=== PATIENT | female | born 1945 | race Caucasian/White ===

== ENCOUNTER → 2023-01-01 08:16 | Outpatient (BNVA) | payer MEDICARE, SELFPAY | PROVIDERS: Family Provider Family Medicine; PCP Family Medicine; Visit Provider Family Medicine | DX: R00.2 Palpitations (principal); Z79.899 Other long term (current) drug therapy | CPT/HCPCS: 80053; 83735; 83880; 84443; 85025 ==

== ENCOUNTER 2023-01-02 05:00 | Observation (INO) | payer MEDICARE, SELFPAY ==
[2023-01-02] VITALS (80 sets, daily range): BP systolic 120–209; BP diastolic 57–102; PULSE 60–117; RESP 1–30; TEMP 36.4–36.9; O2SAT 92–100; BMI 26.6
--- NOTE | 2023-01-02 05:06 | ED_ITS ---
Documented by User: Gerard Gonzalez MD 01/02/23 05:40 HPI - General Adult General: Chief complaint: Altered Mental Status Stated complaint: AMS Time Seen by Provider: 01/02/23 05:02 Source: patient and EMS Mode of arrival: EMS Limitations: no limitations History of Present Illness: 77-year-old female that per EMS went to bed last night at 8. Primus stated that tried to wake her up at 3 AM is very difficult to arouse and seemed very confused EMS states when they arrived she was difficult to arouse as well and was confused she is now awake she is answering my questions she is able to tell me the president you the year and her name she does appear little lethargic denies any pain anywhere denies any fever. Associated symptoms: Reports confusion; Deny chest pain, dyspnea, headache(s), nausea, rash or vomiting Review of Systems Const: Denies: fever(s) or chills Eyes: Denies: blurry vision ENMT: Denies: throat pain or dental pain Card: Denies: chest pain Resp: Denies: dyspnea GI: Denies: abdominal pain, nausea, vomiting or diarrhea Musc: Denies: neck pain or back pain Skin/Breast: Denies: rash Neuro: Reports: confusion; Denies: headache(s) Physical Exam Const: COMMON NORMALS: patient oriented x3 HENMT: COMMON NORMALS: normocephalic and atraumatic HEAD & SCALP: normocephalic and atraumatic Eye: COMMON NORMALS: Equal, round and reactive pupils present and EOMs intact bilaterally PUPIL: Yes Equal, round and reactive pupils present Neck/C-Spine: COMMON NORMALS: full ROM and supple Chest: COMMONS NORMALS: normal inspection of the chest and normal palpation of entire chest wall Resp: COMMON NORMALS: normal respiratory effort, No retractions, No use of accessory muscles and clear to auscultation bilaterally AUSCULTATION: clear to auscultation bilaterally Cardio: COMMON NORMALS: No murmurs present (Cardio) RATE: tachycardic RHYTHM: abnormal rhythm irregularly irregular GI: COMMON NORMALS: Normal to inspection, nondistended, normoactive bowel sounds present, Soft to palpation, non-tender and no masses PALPATION: Yes Soft to palpation Extremity: COMMON NORMALS: normal to inspection and full ROM Neuro: COMMON NORMALS: patient oriented x3, moves all extremities and no focal motor deficits Psych: COMMON NORMALS: mental status grossly normal, Normal thought process present and cooperative THOUGHT PROCESS: Normal thought process present Skin: COMMON NORMALS: no rashes or lesions noted and no wounds GENERAL SKIN EXAM: no rashes or lesions noted Course Vital Signs: Vital signs: Vital Signs Temperature 97.9 F 01/02/23 05:01 Pulse Rate 68 01/02/23 05:39 Respiratory Rate 19 H 01/02/23 05:39 Blood Pressure 164/78 01/02/23 05:39 Pulse Oximetry 96 01/02/23 05:39 Oxygen Delivery Me thod Room Air 01/02/23 05:39 [facility] - General Adult Medical Records I reviewed the patient's medical records. Lab Data I reviewed the patient's lab results. 01/02/23 05:15 01/02/23 02:44 Radiology Impressions Chest X-Ray 01/02/23 05:07 IMPRESSION: 1. No definite CHF or pneumonia. 2. Other findings discussed above. Head CT 01/02/23 05:07 IMPRESSION: 1. No acute intracranial hemorrhage or mass effect. 2. Changes of microvascular disease. 3. No definite acute infarct by CT, see above. 4. Other findings discussed above. Laboratory Results WBC 4.7 10^3/uL (4.0-10.0) 01/02/23 05:15 RBC 4.67 10^6/uL (4.1-5.3) 01/02/23 05:15 Hgb 14.8 g/dL (11.5-15.3) 01/02/23 05:15 Hct 45.5 % (37.0-47.0) 01/02/23 05:15 MCV 97.4 fl (81-99) 01/02/23 05:15 MCH 31.7 pg (28.0-34.0) 01/02/23 05:15 MCHC 32.5 g/dL (30.0-36.0) 01/02/23 05:15 RDW 13.5 % (12.1-15.1) 01/02/23 05:15 Plt Count 151 10^3/cmm (130-400) 01/02/23 05:15 MPV 11.4 fL (7.4-10.4) H 01/02/23 05:15 Neut % (Auto) 53.4 % 01/02/23 05:15 Lymph % (Auto) 35.0 % 01/02/23 05:15 Meriwether % (Auto) 10.2 % 01/02/23 05:15 Eos % (Auto) 0.4 % 01/02/23 05:15 Baso % (Auto) 0.8 % 01/02/23 05:15 Neut # (Auto) 2.51 10^3/uL (1.8-7.7) 01/02/23 05:15 Lymph # (Auto) 1.7 10^3/uL (0.8-4.8) 01/02/23 05:15 [place]ether # (Auto) 0.5 10^3/uL (0.2-0.9) 01/02/23 05:15 Eos # (Auto) 0.0 10^3/uL (0.0-0.8) 01/02/23 05:15 Baso # (Auto) 0.0 10^3/uL (0.0-0.1) 01/02/23 05:15 Nucleated RBC % (auto) 0 % 01/02/23 05:15 Nucleated RBCs # 0.0 /100WBC 01/02/23 05:15 PT 12.30 SECONDS (12.1-14.9) 01/02/23 02:44 INR 0.88 (0.8-1.2) 01/02/23 02:44 Sodium 142 mmol/L (136-145) 01/02/23 02:44 Potassium 3.8 mmol/L (3.5-5.1) 01/02/23 02:44 Chloride 106 mmol/L (98-107) 01/02/23 02:44 Carbon Dioxide 26 mmol/L (22-29) 01/02/23 02:44 Anion Gap 13.8 (5-19) 01/02/23 02:44 BUN 16 mg/dL (8-23) 01/02/23 02:44 Creatinine 0.8 mg/dL (0.5-0.9) 01/02/23 02:44 GFR Calculation Not Reportable 01/02/23 02:44 Glucose 95 mg/dL (65-115) 01/02/23 02:44 POC Glucose 103 mg/dL (70-110) 01/02/23 05:29 Calculated Osmolality 295 mOsm/kg (285-295) 01/02/23 02:44 Calcium 9.4 mg/dL (8.5-10.5) 01/02/23 02:44 Total Bilirubin 0.5 mg/dL (0.15-1.2) 01/02/23 02:44 AST 31 U/L (0-32) 01/02/23 02:44 ALT 33 U/L (0-33) 01/02/23 02:44 Alkaline Phosphatase 53 U/L (35-105) 01/02/23 02:44 Ammonia 16 umol/L (11-51) 01/02/23 05:47 Troponin T Baseline 11 ng/L (0-10) H 01/02/23 02:44 Total Protein 7.0 g/dL (6.6-8.7) 01/02/23 02:44 Albumin 4.5 g/dL (3.5-5.2) 01/02/23 02:44 Globulin 2.5 g/dL (1.3-4.6) 01/02/23 02:44 EKG Data EKG 1: I personally reviewed and interpreted this EKG as follows: EKG interpretation date: 01/02/23 EKG interpretation time: 05:28 Interpretation: nsr hr [address] ort wave abnormalities qrs 95 qtc 402 Computer generated interpretation: Chest X-Ray 01/02/23 05:07 IMPRESSION: 1. No definite CHF or pneumonia. 2. Other findings discussed above. Head CT 01/02/23 05:07 IMPRESSION: 1. No acute intracranial hemorrhage or mass effect. 2. Changes of microvascular disease. 3. No definite acute infarct by CT, see above. 4. Other findings discussed above. Discharge Plan Discharge Patient Disposition: Placed in Observation Clinical Impression: Atrial fibrillation, TIA (transient ischemic attack), Hypertension Sign Out Sign Out Data: Patient Sign Out occurred on 01/02/23 at 05:51. Patient's care was discussed, and care was transferred from to Fito Haines DO. Coding Level of Care Code ED Lumber Hacker for Chg Fwd Documented by User: Fito Haines DO 01/02/23 07:19 HPI - General Adult General: Chief complaint: Altered Mental Status Stated complaint: AMS Time Seen by Provider: 01/02/23 05:02 Course Vital Signs: Vital signs: Vital Signs Temperature 97.9 F 01/02/23 05:01 Pulse Rate 68 01/02/23 05:39 Respiratory Rate 19 H 01/02/23 05:39 Blood Pressure 164/78 01/02/23 05:39 Pulse Oximetry 96 01/02/23 05:39 Oxygen Delivery Me thod Room Air 01/02/23 05:39 MDM - General Adult Medical Decision Making Care assumed at change of shift. Reviewing her history of concerning on the monitor for some potential intermittent atrial fibrillation. She had similar symptoms in the past with complaints of palpitations when she was in [place]. They did monitor for a time. She has never been formally diagnosed with atrial fibrillation. She was extremely hypertensive when she arrived here and given labetalol. She has a sinus arrhythmia with frequent pauses and some episodes l ook like she may have short runs of atrial fibrillation. Blood pressures improved after the labetalol. She had seen Dr. Carty yesterday with a complaint of not feeling well head feeling fuzzy elevated heart rate. Dr. Carty's note makes mention of irregular heart rate as well. Will place patient on observation for potential new onset atrial fibrillation as well as TIA and hypertension. Further evaluation for stroke risk medication adjustments for rate and blood pressure control as needed. She is not on any platelet therapy but she is on Crestor 10 mg daily. Lab Data 01/02/23 05:15 01/02/23 02:44 Radiology Impressions Chest X-Ray 01/02/23 05:07 IMPRESSION: 1. No definite CHF or pneumonia. 2. Other findings discussed above. Head CT 01/02/23 05:07 IMPRESSION: 1. No acute intracranial hemorrhage or mass effect. 2. Changes of microvascular disease. 3. No definite acute infarct by CT, see above. 4. Other findings discussed above. Laboratory Results WBC 4.7 10^3/uL (4.0-10.0) 01/02/23 05:15 RBC 4.67 10^6/uL (4.1-5.3) 01/02/23 05:15 Hgb 14.8 g/dL (11.5-15.3) 01/02/23 05:15 Hct 45.5 % (37.0-47.0) 01/02/23 05:15 MCV 97.4 fl (81-99) 01/02/23 05:15 MCH 31.7 pg (28.0-34.0) 01/02/23 05:15 MCHC 32.5 g/dL (30.0-36.0) 01/02/23 05:15 RDW 13.5 % (12.1-15.1) 01/02/23 05:15 Plt Count 151 10^3/cmm (130-400) 01/02/23 05:15 MPV 11.4 fL (7.4-10.4) H 01/02/23 05:15 Neut % (Auto) 53.4 % 01/02/23 05:15 Lymph % (Auto) 35.0 % 01/02/23 05:15 Meriwether % (Auto) 10.2 % 01/02/23 05:15 Eos % (Auto) 0.4 % 01/02/23 05:15 Baso % (Auto) 0.8 % 01/02/23 05:15 Neut # (Auto) 2.51 10^3/uL (1.8-7.7) 01/02/23 05:15 Lymph # (Auto) 1.7 10^3/uL (0.8-4.8) 01/02/23 05:15 Meriwether # (Auto) 0.5 10^3/uL (0.2-0.9) 01/02/23 05:15 Eos # (Auto) 0.0 10^3/uL (0.0-0.8) 01/02/23 05:15 Baso # (Auto) 0.0 10^3/uL (0.0-0.1) 01/02/23 05:15 Nucleated RBC % (auto) 0 % 01/02/23 05:15 Nucleated RBCs # 0.0 /100WBC 01/02/23 05:15 PT 12.30 SECONDS (12.1-14.9) 01/02/23 02:44 INR 0.88 (0.8-1.2) 01/02/23 02:44 Sodium 142 mmol/L (136-145) 01/02/23 02:44 Potassium 3.8 mmol/L (3.5-5.1) 01/02/23 02:44 Chloride 106 mmol/L (98-107) 01/02/23 02:44 Carbon Dioxide 26 mmol/L (22-29) 01/02/23 02:44 Anion Gap 13.8 (5-19) 01/02/23 02:44 BUN 16 mg/dL (8-23) 01/02/23 02:44 Creatinine 0.8 mg/dL (0.5-0.9) 01/02/23 02:44 GFR Calculation Not Reportable 01/02/23 02:44 Glucose 95 mg/dL (65-115) 01/02/23 02:44 POC Glucose 103 mg/dL (70-110) 01/02/23 05:29 Calculated Osmolality 295 mOsm/kg (285-295) 01/02/23 02:44 Calcium 9.4 mg/dL (8.5-10.5) 01/02/23 02:44 Total Bilirubin 0.5 mg/dL (0.15-1.2) 01/02/23 02:44 AST 31 U/L (0-32) 01/02/23 02:44 ALT 33 U/L (0-33) 01/02/23 02:44 Alkaline Phosphatase 53 U/L (35-105) 01/02/23 02:44 Ammonia 16 umol/L (11-51) 01/02/23 05:47 Troponin T Baseline 11 ng/L (0-10) H 01/02/23 02:44 Total Protein 7.0 g/dL (6.6-8.7) 01/02/23 02:44 Albumin 4.5 g/dL (3.5-5.2) 01/02/23 02:44 Globulin 2.5 g/dL (1.3-4.6) 01/02/23 02:44 EKG Data EKG 1: Computer generated interpretation: Chest X-Ray 01/02/23 05:07 IMPRESSION: 1. No definite CHF or pneumonia. 2. Other findings discussed above. Head CT 01/02/23 05:07 IMPRESSION: 1. No acute intracranial hemorrhage or mass effect. 2. Changes of microvascular disease. 3. No definite acute infarct by CT, see above. 4. Other findings discussed above. Discharge Plan Discharge Patient Disposition: Placed in Observation Clinical Impression: Atrial fibrillation, TIA (transient ischemic attack), Hypertension Sign Out Sign Out Data: Patient Sign Out occurred on 01/02/23 at 05:51. Patient's care was discussed, and care was transferred from to Fito Haines DO. Coding Level of Care Code ED Lumber Hacker for Loyd Collado
--- NOTE | 2023-01-02 05:07 | XRR_ITS ---
PROCEDURE INFORMATION: Exam: XR Chest Exam date and time: 01/02/2023 5:14 AM Age: 77 years old Clinical indication: Prior surgery; Surgery date: 6+ months; Surgery type: Breast biopsy; Patient HX: AMS. History of afib. TECHNIQUE: Imaging protocol: Radiologic exam of the chest. Views: 1 view. COMPARISON: No relevant prior studies available. FINDINGS: Lungs: No CHF/pulmonary edema. Poor inspiration somewhat limits evaluation, especially of the lung bases. Visible lungs appear essentially clear. Pleural spaces: No visible pneumothorax. No definite pleural fluid. Heart/Mediastinum: Heart size is within normal limits. Bones/joints: No significant acute finding. XR/XR chest 1V portable [id number] IMPRESSION: 1. No definite CHF or pneumonia. 2. Other findings discussed above.
--- NOTE | 2023-01-02 05:07 | CTR_ITS ---
PROCEDURE INFORMATION: Exam: CT Head Without Contrast Exam date and time: 01/02/2023 5:20 AM Age: 77 years old Clinical indication: Altered mental status/memory loss; Patient HX: AMS. Lethargy. Hypertensive on monitor. TECHNIQUE: Imaging protocol: Computed tomography of the head without contrast. Radiation optimization: All CT scans at this facility use at least one of these dose optimization techniques: automated exposure control; mA and/or kV adjustment per patient size (includes targeted exams where dose is matched to clinical indication); or iterative reconstruction. REPORTING DATA: Count of CT and Cardiac NM exams in prior 12 months: This patient has received 0 known CTs and 0 known cardiac nuclear medicine studies in the 12 months prior to the current study. COMPARISON: No relevant prior studies available. RADIATION DOSE METRICS: Total DLP (mGy-cm): 1051.28 FINDINGS: Brain: No acute intracranial hemorrhage or mass effect. There is mild decreased attenuation in the periventricular white matter, likely from microvascular disease. No definite acute infarct by CT. MRI could be more sensitive/specific for detection, as clinically directed. Cerebral ventricles: Ventricle size is normal for age. Paranasal sinuses: Moderate opacity/fluid in the right aspect of the sphenoid sinus. Included paranasal sinuses otherwise appear essentially clear. Mastoid air cells: No significant acute finding. Bones/joints: No definite acute skull fracture. Soft tissues: No significant acute finding. CT/CT head wo con* [id number] IMPRESSION: 1. No acute intracranial hemorrhage or mass effect. 2. Changes of microvascular disease. 3. No definite acute infarct by CT, see above. 4. Other findings discussed above.
--- NOTE | 2023-01-02 05:28 | ECG_ITS ---
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 Measurements Intervals [place] Rate: 66 P: 23 VT: 161 QRS: -5 QRSD: 95 T: 47 QT: 389 QTc: 408 Interpretive Statements SINUS RHYTHM MINIMAL VOLTAGE CRITERIA FOR LVH, CONSIDER NORMAL VARIANT [MEETS CRITERIA IN ONE OF: R(aVL), S(V1), R(V5), R(V5/V6)+S(V1)] Compared to ECG 09/03/2015 11:51:25 No significant changes Electronically Signed On 01-02-2023 10:28:10 CDT by Niels Reeves M.D. [id number]
[2023-01-02] MEDS: labetalol 5 mg/mL SDV 20mL 10 MG IVP (05:30)
[2023-01-02 05:37] LABS: Basophils % 0.8 %; Eosinophils % 0.4 %; Hematocrit 45.5 % (37.0-47.0); Hemoglobin 14.8 g/dL (11.5-15.3); Lymphocytes # 1.7 10^3/uL (0.8-4.8); Mean Corpuscular HGB Conc 32.5 g/dL (30.0-36.0); Mean Corpuscular Hemoglobin 31.7 pg (28.0-34.0); Mean Corpuscular Volume 97.4 fl (81-99); Mean Platelet Volume 11.4 fL (7.4-10.4); Monocytes # 0.5 10^3/uL (0.2-0.9); Monocytes % 10.2 %; Neutrophils # 2.51 10^3/uL (1.8-7.7); Neutrophils % 53.4 %; Nucleated Red Blood Cells % 0 %; Platelet Count 151 10^3/cmm (130-400); Red Blood Count 4.67 10^6/uL (4.1-5.3); Red Cell Distribution Width 13.5 % (12.1-15.1); White Blood Count 4.7 10^3/uL (4.0-10.0)
[2023-01-02 05:39] LABS: Glucose Point of Care 103 mg/dL (70-110)
[2023-01-02 05:50] LABS: INR 0.88 (0.8-1.2)
[2023-01-02 05:55] LABS: Alanine Aminotransferase 33 U/L (0-33); Albumin Level 4.5 g/dL (3.5-5.2); Alkaline Phosphatase 53 U/L (35-105); Anion Gap 13.8 (5-19); Aspartate Amino Transferase 31 U/L (0-32); Blood Urea Nitrogen 16 mg/dL (8-23); Calcium 9.4 mg/dL (8.5-10.5); Carbon Dioxide 26 mmol/L (22-29); Chloride 106 mmol/L (98-107); Globulin 2.5 g/dL (1.3-4.6); Glucose 95 mg/dL (65-115); Osmolality Calculated 295 mOsm/kg (285-295); Potassium 3.8 mmol/L (3.5-5.1); Sodium 142 mmol/L (136-145); Total Bilirubin 0.5 mg/dL (0.15-1.2)
[2023-01-02 05:59] LABS: Troponin(5th) Baseline 11 ng/L (0-10)
[2023-01-02 06:00] LABS: Slide Review Slide Review Perform
[2023-01-02 06:09] LABS: Ammonia 16 umol/L (11-51)
[2023-01-02 07:11] LABS: Add Urine Microscopic? NO; Charge for UA Resulting for Rev
--- NOTE | 2023-01-02 07:14 | ECG_ITS ---
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 Measurements Intervals [place] Rate: 69 P: 11 UT: 157 QRS: -15 QRSD: 89 T: 32 QT: 423 QTc: 453 Interpretive Statements SINUS RHYTHM WITH SINUS ARRHYTHMIA MINIMAL VOLTAGE CRITERIA FOR LVH, CONSIDER NORMAL VARIANT [MEETS CRITERIA IN ONE OF: R(aVL), S(V1), R(V5), R(V5/V6)+S(V1)] Compared to ECG 01/02/2023 05:28:33 No significant changes Electronically Signed On 01-02-2023 10:28:59 CDT by Niels Reeves M.D. [id number]
[2023-01-02 07:24] LABS: Urine Appearance Clear (CLEAR); Urine Color Straw (Yellow)
[2023-01-02 07:25] LABS: Bilirubin Urine Neg (Negative); Blood Urine Neg (Negative); Glucose Urine UA Norm (Normal); Ketones Urine Negative (Negative); Leukocyte Esterase Urine Negative (Negative); Nitrate Urine Negative (Negative); Protein Urine Neg (Negative); Specific Gravity, Urine 1.005 (1.005-1.030); Sulfosalicylic Acid Urine Negative (Negative); Urobilinogen Urine Norm (Negative); pH Urine 8 (5-7)
[2023-01-02 07:32] LABS: Troponin 5 2HR 9.93 ng/L (0-10)
--- NOTE | 2023-01-02 07:33 | P.HP_ITS ---
Providers/Chief Complaint Primary Care Provider: Gerardo Ramirez MD Chief Complaint: AMS History of Present Illness Maddie Bolden is a 77 year old female with a past medical history significant for GERD, hyperlipidemia, and hypertension who presents to the emergency department complaining of palpitations and lethargy. Spouse and daughter are bedside and aid in providing history. Spouse reports patient went to bed around 8 PM last night which was also her last known well. She woke up in middle of the night and requested help from spouse to go to the restroom. Spouse noted she was much more confused, lethargic and weak than normal. Per ED provider, patient was noted to be lethargic and confused by their evaluation as well. Patient is now awake and alert. She endorse episodic palpitations. She was actually evaluated by her PCP yesterday for similar complaints. Patient's spouse also reports that patient has been having intermittent episodes of weakness and intermittent lower extremity swelling. Patient reports she has been worked up for atrial fibrillation previously after being told she may have an irregular heart beat. She reports she wore a Holter Monitior in [place] previously which did not reveal atrial fibrillation at that time which she thinks was 1-2 years ago. There was concerns of possible ir regular heart beat on monitor per ED provider. She reports her mother had atrial fibrillation. Patient denies fevers, chills, nausea, chest pain, or other new complaints. Review of Systems Narrative: A complete review of systems was obtained and negative except for those noted in the HPI. Medications/Allergies Home Medications Medication Instructions Recorded Confirmed Last Taken Type celecoxib 100 mg capsule (Celebrex) 100 mg PO QAM 01/01/23 01/02/23 Unknown History omeprazole 20 mg capsule,delayed 20 mg PO QAM 01/01/23 01/02/23 Unknown History release rosuvastatin 10 mg tablet 10 mg PO BEDTIME 01/01/23 01/02/23 Unknown History temazepam 30 mg capsule 30 mg PO BEDTIME 01/01/23 01/02/23 Unknown History ascorbic acid (vitamin C) 500 mg 500 mg PO QAM 01/02/23 01/02/23 Unknown History tablet (Vitamin C) aspirin 81 mg tablet,delayed 81 mg PO BEDTIME 01/02/23 01/02/23 Unknown History release biotin 10,000 mcg capsule 10,000 mcg PO QAM 01/02/23 01/02/23 Unknown History calcium carbonate 600 mg calcium 600 mg PO BID 01/02/23 01/02/23 Unknown History (1,500 mg) tablet (Calcium) desvenlafaxine succinate 100 mg 100 mg PO QAM 01/02/23 01/02/23 Unknown History tablet,extended release 24 hr (Pristiq) glucosamine-chondroitin 250 mg-200 1 tab PO BID 01/02/23 01/02/23 Unknown History mg tablet (Osteo Bi-Flex) magnesium oxide 400 mg PO QAM 01/02/23 01/02/23 Unknown History multivitamin 1 tab PO QAM 01/02/23 01/02/23 Unknown History jdrqx-6k-sie-epa-fish oil 120 2 cap PO BID 01/02/23 01/02/23 Unknown History mg-180 mg-60 mg-1,200 mg capsule, DR (Fish Oil) Allergies Allergy/AdvReac Type Severity Reaction Status Date / Time codeine Allergy Intermediate nausea Verified 01/02/23 07:53 PFSH Acute PFSH: Medical History GERD (gastroesophageal reflux disease) Hyperlipidemia Surgical History History of knee surgery Family History Mother Atrial fibrillation Dementia Social History Smoking and tobacco status: never smoked Alcohol intake: never Substance/Drug Use: never Vitals/I&O/Wt Last Vital Signs Temp 97.9 F 01/02/23 05:01 Pulse 68 01/02/23 05:39 Resp 19 H 01/02/23 05:39 BP 164/78 01/02/23 05:39 Pulse Ox 96 01/02/23 05:39 O2 Del Method Room Air 01/02/23 05:39 Weight last 48 hrs Weight 77.111 kg Physical Exam Narrative: General: Patient is awake. Appears fatigued. Head: Normocephalic. Atraumatic. EOM intact. Neck: No JVD. Cardiovascular: RRR. No gallops. No murmurs. Lungs: Clear to auscultation, no use of accessory muscles, no crackles or wheezes. Hypertensive. Skin: No jaundice. No rashes. Abdomen: Soft. Not distended. Normal bowel sounds. Extremities: No cyanosis or clubbing. Musculoskeletal: Normal muscular development. Neurological: No myoclonus. Moves all 4 extremities. Data 01/02/23 05:15 01/02/23 02:44 A&P Assessment and plan (1) Palpitations: History of recurrent palpitations and chest tightness Previous Holter monitor unremarkable per patient Tele reviewed, currently in sinus rhythm Telemetry monitoring Strict I&Os, daily weights Monitor electrolytes Check TSH Check echocardiogram Cardiology consultation (2) Altered mental status: Appears to have resolved, appropriate on exam Head CT reviewed, negative for acute findings Neurochecks (3) GERD (gastroesophageal reflux disease): PPI (4) Hyperlipidemia: Statin ASA Plan DVT ppx: Lovenox Code status: Full Code Attestations Medical Necessity Statement*: Patient presents with altered mental status and recurrent palpitations concerning for paroxysmal atrial fibrillation with expected hospitalization not to cross two midnights. Coding Level of Care Code Acute Code for Chg Fwd Diagnoses Palpitations R00.2 Altered mental status R41.82 GERD (gastroesophageal reflux disease) K21.9 Hyperlipidemia E78.5
[2023-01-02 07:44] LABS: Troponin 5 2HR Delta -1.07 ABS# (0-10)
[2023-01-02] MEDS: acetaminophen 325 mg Tablet 650 MG PO (09:18)
--- NOTE | 2023-01-02 10:21 | PC.CHAP ---
Pastoral Care Encounter/Spiritual Assessment Type of Contact [] Declined performance improvement coordinator visit [] Patient/Family/Request visit [] Outpatient visit [] Follow-up visit [] Physician referral [] Code/Alert [x] Routine visit [] Staff referral [] Actively dying [] Patient sleeping [] Family support [] [] Out of room [] Palliative care [] [] Receiving care in room [] Pre-surgical visit [] Trauma [] Long length of stay [] ICU visit [] Other: Relational/Emotional Strength [] Patient feels connected with others/family/visitors/staff [] Distress [] Loneliness/isolation [] Abandonment Spirituality of Patient [] Person of Lyric [] Attends Yazidism of their Lyric [] Believes in Prayer [] Reads Bible or Mormonism materials [] There are Spiritual issues to be addressed Internal Wholesaler Interventions [x] Prayer [] Active listening [] Non-anxious presence [] Spiritual/emotional support [] Crisis/trauma care [] Spiritual counseling [] Bereavement support [] Provided bereavement packet [] Provided Bible/devotional materials [] Provided toy/stuffed animal, coloring book to patient or family member [] Provided Communion [] Anointing/[place] [] Salvation [] Completed spiritual assessment [] Other: Impact on Illness or Injury [] Angry [] Fearful [] Anxious [] Often cries [] Exhaustion [] Unable to work [] Unable to attend mosque [] Unable to walk/stand [] Unable to read [] Unable to drive [] Unable to eat/drink [] Unable to sleep [] Unable to be with family [] Patient intubated [] Other: Summary patient just got in room Time spent with patient 5 min
--- NOTE | 2023-01-02 10:24 | USCV_ITS ---
Maddie Bolden Age: 77 Gender: F : 1945 Exam Date: 01/02/2023 10:58 Ordering Phys: Emeka Parekh MD Technologist: KIANA Exam Location: [place] Indication: afib BP: / HR: 70 Rhythm: Sinus Technical Quality: Adequate MEASUREMENTS (Male / Female) Normal Values 2D ECHO LV Diastolic Diameter PLAX 4.5 cm 4.2 - 5.9 / 3.9 - 5.3 cm LV Systolic Diameter PLAX 2.6 cm IVS Diastolic Thickness 0.9 cm 0.6 - 1.0 / 0.6 - 0.9 cm IVS Systolic Thickness 1.3 cm LVPW Diastolic Thickness 0.6 cm 0.6 - 1.0 / 0.6 - 0.9 cm LVPW Systolic Thickness 1.3 cm LVOT Diameter 2.1 cm LV Ejection Fraction 2D Teich 73.1 % LV Ejection Fraction MOD 2C 58.1 % LV Ejection Fraction 2C AL 60.7 % LA Diameter 3.1 cm IVC Diameter 1.1 cm M-MODE Aortic Annulus Diameter 3.0 cm LA Ao Ratio MM 1.1 MV E Point Septal Separation 0.4 cm DOPPLER AV Peak Velocity 116.0 cm/s LVOT Peak Velocity 84.0 cm/s AV Area Cont Eq vti 2.4 cm squared AV Area Cont Eq pk 2.4 cm squared MV Area PHT 3.1 cm squared Mitral E to A Ratio 0.6 MV E' Velocity 29.5 cm/s Mitral E to MV E' Ratio 10.9 Mitral E to LV E' Lateral Ratio 10.3 Mitral E to LV E' Septal Ratio 11.7 TR Peak Velocity 198.5 cm/s TR Peak Gradient 15.8 mmHg TR Mean Velocity 201.0 cm/s TR Mean Gradient 16.2 mmHg TR Velocity Time Integral 0.0 cm TV Peak E Velocity 42.0 cm/s Right Atrial Pressure 3.0 mmHg Pulmonary Artery Systolic Pressu 18.8 mmHg PV Peak Velocity 64.0 cm/s FINDINGS Left Ventricle Normal left ventricular size, systolic function and wall thickness, with no regional wall motion abnormalities. Left ventricular ejection fraction is estimated at 65 %. Grade I diastolic dysfunction (abnormal relaxation filling pattern), normal to mildly elevated filling pressures. Right Ventricle Normal right ventricular size and systolic function. RVSP could not be calculated due to incomplete tricuspid regurgitation velocity profile. Right Atrium Normal right atrial size. Left Atrium Mildly increased left atrial size. Mitral Valve Structurally normal mitral valve. No mitral valve stenosis. Trace mitral valve regurgitation. Aortic Valve Structurally normal trileaflet aortic valve. No aortic valve stenosis. No aortic valve regurgitation. Tricuspid Valve Structurally normal tricuspid valve. No tricuspid valve stenosis. Trace tricuspid valve regurgitation. Pulmonic Valve Structurally normal pulmonic valve. No pulmonary valve stenosis. Pericardium No pericardial effusion. Aorta Normal size aortic root and proximal ascending aorta. IVC Normal IVC dimension with >50% respiratory change of the inferior vena cava. CONCLUSIONS 1. Normal left ventricular size, systolic function and wall thickness, with no regional wall motion abnormalities. Left ventricular ejection fraction is estimated at 65 %. Grade I diastolic dysfunction (abnormal relaxation filling pattern), normal to mildly elevated filling pressures. 2. No significant valvular abnormality. 3. No prior similar studies to compare. Aide Romero MD (Electronically Signed) Final Date: 02 January 2023 14:55 S
--- NOTE | 2023-01-02 11:07 | ECG_ITS ---
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 Measurements Intervals [place] Rate: 75 P: 26 SC: 148 QRS: -10 QRSD: 86 T: 54 QT: 403 QTc: 453 Interpretive Statements SINUS RHYTHM WITH SINUS ARRHYTHMIA Compared to ECG 01/02/2023 07:14:23 No significant changes Electronically Signed On 01-02-2023 17:04:31 CDT by Niels Reeves M.D. [id number]
[2023-01-02 11:20] LABS: Thyroid Stimulating Hormone 2.26 uIU/mL (0.27-4.20)
--- NOTE | 2023-01-02 12:06 | P.CONIM_ITS ---
Providers/Reason For Consult Consulting Physician/Specialty*: Dr. Romero, Cardiology Reason for Consult*: Tachycardia concern for atrial fibrillation, for loop recorder implantation Attending Physician: Emeka Parekh MD Primary Care Provider: Gerardo Ramirez MD History of Present Illness History of Present Illness Maddie Bolden is a 77 year old female with?past medical history significant for hypertension, HLD and GERD presented to the emergency room with lethargy, slurred speech and fatigue.? As per , patient went to bed around 8 PM last night and she woke up in middle of the night and was noted to have staggering gait.? She was noted to have more confused and lethargic. He called her daughter and patient was brought to the ER. She went to her PCP yesterday for palpitations described as skipped beats followed later by fatigue. She wore a Holter Monitor in [place] that did not reveal atrial fibrillation about 1-2 years ago.? There was some concern of possible irregular heart beat on monitor per ED provider.? She reports her mother had atrial fibrillation. She has been under a lot of stress and got back after visiting her son on Thursday who has been sick. She also tells me that she does not drink much fluid. One glass of water in morning and decaf tea in evening. Review of Systems Const: Reports: fatigue and malaise; Denies: fever(s), chills, change in appetite or change in weight Eyes: Denies: change in vision ENMT: Denies: throat pain, swelling of lips/tongue, oral sores, bleeding gums, nasal congestion or epistaxis Card: Reports: edema (minimal); Denies: chest pain Resp: Denies: dyspnea or chest congestion GI: Denies: abdominal pain, nausea, vomiting, hematemesis, heartburn, diarrhea, constipation, change in bowel habits, hematochezia or melena : Denies: difficulty voiding, dysuria, oliguria or hematuria Musc: Denies: back pain, extremity swelling, joint pain or muscle weakness Skin/Breast: Denies: rash or erythema Neuro: Reports: headache(s) (Upon waking) Psych: Denies: anxiety, depression or irritability Endo: Denies: tired all the time Jeffrey/Lymph: Denies: easy bruising, easy bleeding, petechiae or purpura All/Imm: Denies: throat swelling, tongue swelling or acute wheezing Medications/Allergies Home Medications Medication Instructions Recorded Confirmed Last Taken Type celecoxib 100 mg capsule (Celebrex) 100 mg PO QAM 01/01/23 01/02/23 Unknown History omeprazole 20 mg capsule,delayed 20 mg PO QAM 01/01/23 01/02/23 Unknown History release rosuvastatin 10 mg tablet 10 mg PO BEDTIME 01/01/23 01/02/23 Unknown History temazepam 30 mg capsule 30 mg PO BEDTIME 01/01/23 01/02/23 Unknown History ascorbic acid (vitamin C) 500 mg 500 mg PO QAM 01/02/23 01/02/23 Unknown History tablet (Vitamin C) aspirin 81 mg tablet,delayed 81 mg PO BEDTIME 01/02/23 01/02/23 Unknown History release biotin 10,000 mcg capsule 10,000 mcg PO QAM 01/02/23 01/02/23 Unknown History calcium carbonate 600 mg calcium 600 mg PO BID 01/02/23 01/02/23 Unknown History (1,500 mg) tablet (Calcium) desvenlafaxine succinate 100 mg 100 mg PO QAM 01/02/23 01/02/23 Unknown History tablet,extended release 24 hr (Pristiq) glucosamine-chondroitin 250 mg-200 1 tab PO BID 01/02/23 01/02/23 Unknown History mg tablet (Osteo Bi-Flex) magnesium oxide 400 mg PO QAM 01/02/23 01/02/23 Unknown History multivitamin 1 tab PO QAM 01/02/23 01/02/23 Unknown History hmyha-6f-leh-epa-fish oil 120 2 cap PO BID 01/02/23 01/02/23 Unknown History mg-180 mg-60 mg-1,[address] (Fish Oil) Allergies Allergy/AdvReac Type Severity Reaction Status Date / Time codeine Allergy Intermediate nausea Verified 01/02/23 07:53 Current Medications Generic Name Dose Route Start Last Admin Trade Name Freq PRN Reason Stop Dose Admin Acetaminophen 650 mg 01/02/23 08:18 01/02/23 09:18 Acetaminophen 325 Mg Tablet PO 650 mg Q6H PRN Administration Mild/Mod Pain Or Temp >/= 101 PFSH Acute PFSH: Medical History GERD (gastroesophageal reflux disease) Hyperlipidemia Surgical History History of knee surgery Family History Mother Atrial fibrillation Dementia Social History Smoking and tobacco status: never smoked Alcohol intake: never Substance/Drug Use: never Vitals/I&O/Wt Last Vital Signs Temp 97.6 F 01/02/23 12:00 Pulse 68 01/02/23 12:00 Resp 16 01/02/23 12:00 BP 143/76 01/02/23 12:00 Pulse Ox 97 01/02/23 12:00 O2 Del Method Room Air 01/02/23 09:10 Weight last 48 hrs Weight 173 lb 9.6 oz Weight 170 lb Physical Exam Narrative: GENERAL: Averagely built and averagely nourished in no acute distress HEENT: Extraocular movement intact. No pallor or icterus. NECK: central trachea, No JVD. No carotid bruit. CARDIOVASCULAR SYSTEM: S1-S2 regular. No murmur rubs or gallops. RESPIRATORY SYSTEM: Chest clear to auscultation. No wheezes rhonchi or rubs heard. No use of accessory muscles. ABDOMEN: Soft, nontender and nondistended. Normal bowel sounds present. EXTREMITIES: No cyanosis or edema. No signs of chronic venous insufficiency. 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 No focal neurological deficits. SKIN: Normal turgor and temperature. PSYCH: Normal insight and judgment. Data 01/02/23 05:15 01/02/23 02:44 A&P Assessment and plan (1) Palpitations: No evidence of A. fib -continue to monitor on telemetry -some ectopic beats noted; no atrial fibrillation -last 2 week event monitor 1-2 years back. None since then -plan for repeat 30 day event monitor -Not a candidate for ILR at this time. (2) Altered mental status: resolved (3) Hyperlipidemia: (4) GERD (gastroesophageal reflux disease): Coding Level of Care Code 76279 Diagnoses Palpitations R00.2 Altered mental status R41.82 Hyperlipidemia E78.5 GERD (gastroesophageal reflux disease) K21.9
[2023-01-02 12:22] LABS: Troponin 5 6HR 11.47 ng/L (0-10)
[2023-01-02 12:27] LABS: Troponin 5 6HR Delta 0.47 ng/L (0-12)
[2023-01-02] MEDS: HYDROcodone-acetaminophen 5-325 mg Tablet 1 TAB PO ×2 (14:34→22:53)
[2023-01-02] MEDS: temazepam 15 mg Capsule 30 MG PO (20:14)
[2023-01-02] MEDS: atorvastatin 40 mg Tablet PO (20:14)
[2023-01-02] MEDS: aspirin 81 mg EC Tablet PO (20:15)
[2023-01-02] MEDS: ondansetron 2 mg/ML SDV 2 mL 4 MG IVP (20:17)
[2023-01-02] MEDS: enoxaparin 40 mg/0.4 mL Syringe SUBCUT (21:11)
[2023-01-03] MEDS: metoclopramide 5 mg/mL SDV 2 mL 10 MG IVP (01:43)
[2023-01-03] MEDS: zolpidem 5 mg Tablet 2.5 MG PO (01:54)
[2023-01-03 04:00] VITALS: BP 125/59; PULSE 67; RESP 16; TEMP 36.4; O2SAT 96
[2023-01-03 04:38] LABS: Basophils % 0.7 %; Hematocrit 43.6 % (37.0-47.0); Hemoglobin 14.1 g/dL (11.5-15.3); Lymphocytes # 1.5 10^3/uL (0.8-4.8); Lymphocytes % 24.4 %; Mean Corpuscular HGB Conc 32.3 g/dL (30.0-36.0); Mean Corpuscular Volume 99.1 fl (81-99); Mean Platelet Volume 9.9 fL (7.4-10.4); Monocytes # 0.5 10^3/uL (0.2-0.9); Monocytes % 7.9 %; Neutrophils # 3.97 10^3/uL (1.8-7.7); Neutrophils % 66.8 %; Nucleated Red Blood Cells % 0 %; Platelet Count 172 10^3/cmm (130-400); Red Cell Distribution Width 13.6 % (12.1-15.1); White Blood Count 5.9 10^3/uL (4.0-10.0)
[2023-01-03 04:58] LABS: Anion Gap 12.9 (5-19); Blood Urea Nitrogen 14 mg/dL (8-23); Calcium 9.2 mg/dL (8.5-10.5); Carbon Dioxide 27 mmol/L (22-29); Chloride 106 mmol/L (98-107); Glucose 91 mg/dL (65-115); Magnesium 2.4 mg/dL (1.7-2.3); Osmolality Calculated 294 mOsm/kg (285-295); Phosphorus 4.3 mg/dL (2.5-4.5); Potassium 3.9 mmol/L (3.5-5.1); Sodium 142 mmol/L (136-145)
[2023-01-03] MEDS: desvenlafaxine 50 mg Tablet 100 MG PO (05:47)
[2023-01-03] MEDS: pantoprazole DR 40 mg Tablet PO (05:47)
[2023-01-03] MEDS: CELEcoxib 100 mg Capsule PO (05:47)
[2023-01-03 06:00] VITALS: PULSE 70
[2023-01-03 07:15] VITALS: BP 125/59; PULSE 76; RESP 18; TEMP 36.4; O2SAT 96
--- NOTE | 2023-01-03 08:58 | PM.DCS ---
Discharge Providers Date of Admission: 01/02/23 07:48 Date of Discharge: January 03, 2023 Attending Provider at Admission: Emeka Parekh MD Attending Provider at Discharge: Emeka Parekh MD Consults: Cardiology Primary Care Provider: Gerardo Ramirez MD Diagnoses at Discharge Discharge Diagnosis (1) Palpitations: Status: Acute (2) Altered mental status: Status: Acute (3) Hyperlipidemia: Status: Acute (4) GERD (gastroesophageal reflux disease): Status: Acute Reason for Visit Reason for Visit: [facility] Hospital Course Hospital Course Maddie Bolden is a 77 year old female with a past medical history significant for GERD, hyperlipidemia, and hypertension who presents to the emergency department complaining of palpitations and lethargy, found to have palpitations. Mentation was at baseline prior to arrival. Patient admitted to observation. Telemetry showed sinus rhythm. Echocardiogram showed no acute findings. Cardiology consulted and recommended 30 day event monitor. Will request PCP order event monitor at appointment for hospital follow up to ensure better follow up. Patient's symptoms resolved and she as discharged to home in stable condition. On the day of discharge, patient had transient nausea and emesis. Symptoms then resolved. Reports emesis was blood tinged. Notes she has been under a lot of stress recently. Discussed concern for stress ulcer. She declined any consideration of EGD and agreed to medical treatment. PPI dosing adjusted and NSAID held until follow up with PCP. Physical Exam Narrative: General: Patient is awake.? Alert. Very pleasant. Head:? Normocephalic. Atraumatic. EOM intact. Neck: No JVD. Cardiovascular: RRR. No gallops. No murmurs. Lungs: Clear to auscultation, no use of accessory muscles, no crackles or wheezes.? Skin: No jaundice. No rashes. Abdomen: Soft.? Not distended.? Normal bowel sounds. Extremities: No cyanosis or clubbing. Musculoskeletal: Normal muscular development. Neurological:? No myoclonus.? Moves all 4 extremities. Discharge Data Studies Completed and Pending Completed Studies During Hospitalization Category Date Time Status CT head wo con* [id number] Stat Cat Scan 01/02/23 05:07 Completed XR chest 1V portable [id number] Stat Exams 01/02/23 05:07 Completed CV. echo complete* [id number] Routine Ultrasound 01/02/23 10:24 Completed Radiology Impressions Chest X-Ray 01/02/23 05:07 IMPRESSION: 1. No definite CHF or pneumonia. 2. Other findings discussed above. Head CT 01/02/23 05:07 IMPRESSION: 1. No acute intracranial hemorrhage or mass effect. 2. Changes of microvascular disease. 3. No definite acute infarct by CT, see above. 4. Other findings discussed above. Laboratory Results WBC 5.9 10^3/uL (4.0-10.0) 01/03/23 03:36 RBC 4.40 10^6/uL (4.1-5.3) 01/03/23 03:36 Hgb 14.1 g/dL (11.5-15.3) 01/03/23 03:36 Hct 43.6 % (37.0-47.0) 01/03/23 03:36 MCV 99.1 fl (81-99) H 01/03/23 03:36 MCH 32.0 pg (28.0-34.0) 01/03/23 03:36 MCHC 32.3 g/dL (30.0-36.0) 01/03/23 03:36 RDW 13.6 % (12.1-15.1) 01/03/23 03:36 Plt Count 172 10^3/cmm (130-400) 01/03/23 03:36 MPV 9.9 fL (7.4-10.4) 01/03/23 03:36 Neut % (Auto) 66.8 % 01/03/23 03:36 Lymph % (Auto) 24.4 % 01/03/23 03:36 [place] % (Auto) 7.9 % 01/03/23 03:36 Eos % (Auto) 0.0 % 01/03/23 03:36 Baso % (Auto) 0.7 % 01/03/23 03:36 Neut # (Auto) 3.97 10^3/uL (1.8-7.7) 01/03/23 03:36 Lymph # (Auto) 1.5 10^3/uL (0.8-4.8) 01/03/23 03:36 [place] # (Auto) 0.5 10^3/uL (0.2-0.9) 01/03/23 03:36 Eos # (Auto) 0.0 10^3/uL (0.0-0.8) 01/03/23 03:36 Baso # (Auto) 0.0 10^3/uL (0.0-0.1) 01/03/23 03:36 Nucleated RBC % (auto) 0 % 01/03/23 03:36 Nucleated RBCs # 0.0 /100WBC 01/03/23 03:36 PT 12.30 SECONDS (12.1-14.9) 01/02/23 02:44 INR 0.88 (0.8-1.2) 01/02/23 02:44 Sodium 142 mmol/L (136-145) 01/03/23 03:36 Potassium 3.9 mmol/L (3.5-5.1) 01/03/23 03:36 Chloride 106 mmol/L (98-107) 01/03/23 03:36 Carbon Dioxide 27 mmol/L (22-29) 01/03/23 03:36 Anion Gap 12.9 (5-19) 01/03/23 03:36 BUN 14 mg/dL (8-23) 01/03/23 03:36 Creatinine 0.8 mg/dL (0.5-0.9) 01/03/23 03:36 GFR Calculation Not Reportable 01/03/23 03:36 Glucose 91 mg/dL (65-115) 01/03/23 03:36 POC Glucose 103 mg/dL (70-110) 01/02/23 05:29 Calculated Osmolality 294 mOsm/kg (285-295) 01/03/23 03:36 Calcium 9.2 mg/dL (8.5-10.5) 01/03/23 03:36 Phosphorus 4.3 mg/dL (2.5-4.5) 01/03/23 03:36 Magnesium 2.4 mg/dL (1.7-2.3) H 01/03/23 03:36 Total Bilirubin 0.5 mg/dL (0.15-1.2) 01/02/23 02:44 AST 31 U/L (0-32) 01/02/23 02:44 ALT 33 U/L (0-33) 01/02/23 02:44 Alkaline Phosphatase 53 U/L (35-105) 01/02/23 02:44 Ammonia 16 umol/L (11-51) 01/02/23 05:47 Troponin T Baseline 11 ng/L (0-10) H 01/02/23 02:44 Troponin T 120 Minute 9.93 ng/L (0-10) 01/02/23 07:06 Delta Troponin T -1.07 ABS# (0-10) L 01/02/23 07:06 Troponin T Hi Sens 6Hr 11.47 ng/L (0-10) H 01/02/23 11:32 Troponin T Hi Sens 6Hr Delta 0.47 ng/L (0-12) 01/02/23 11:32 Total Protein 7.0 g/dL (6.6-8.7) 01/02/23 02:44 Albumin 4.5 g/dL (3.5-5.2) 01/02/23 02:44 Globulin 2.5 g/dL (1.3-4.6) 01/02/23 02:44 TSH 2.26 uIU/mL (0.27-4.20) 01/02/23 07:06 Urine Color Straw (Yellow) 01/02/23 07:06 Urine Appearance Clear (CLEAR) 01/02/23 07:06 Urine pH 8 (5-7) H 01/02/23 07:06 Ur Specific [place] 1.005 (1.005-1.030) 01/02/23 07:06 Urine Protein Neg (Negative) 01/02/23 07:06 Urine Glucose (UA) Norm (Normal) 01/02/23 07:06 Urine Ketones Negative (Negative) 01/02/23 07:06 Urine Blood Neg (Negative) 01/02/23 07:06 Urine Nitrate Negative (Negative) 01/02/23 07:06 Urine Bilirubin Neg (Negative) 01/02/23 07:06 Prot Sulfosalicylic Acd Negative (Negative) 01/02/23 07:06 Urine Urobilinogen Norm mg/dL (Negative) 01/02/23 07:06 Ur Leukocyte Esterase Negative (Negative) 01/02/23 07:06 Vitals Last Vital Signs Temp 97.6 F 01/03/23 07:15 Pulse 76 01/03/23 07:15 Resp 18 01/03/23 07:15 BP 125/59 01/03/23 07:15 Pulse Ox 96 01/03/23 07:15 O2 Del Method Nasal Cannula 01/03/23 07:15 Discharge Plan Discharge Patient Disposition: Home Condition: Stable Prescriptions: New omeprazole 40 mg capsule,delayed release(DR/EC) 40 mg PO DAILY Qty: 30 1RF Continued temazepam 30 mg capsule 30 mg PO BEDTIME rosuvastatin 10 mg tablet 10 mg PO BEDTIME multivitamin Tablet 1 tab PO QAM aspirin 81 mg Tablet,Delayed Release (Dr/Ec) 81 mg PO BEDTIME Calcium 600 600 mg calcium (1,500 mg) Tablet 600 mg PO BID Vitamin C 500 mg Tablet 500 mg PO QAM biotin 10,000 mcg Capsule 10,000 mcg PO QAM Osteo Bi-Flex 250-200 mg Tablet 1 tab PO BID Fish Oil 120 mg-180 mg- 60 mg-1,200 mg Capsule,Delayed Release(Dr/Ec) 2 cap PO BID magnesium oxide 400 mg magnesium Tablet 400 mg PO QAM Pristiq 100 mg Tablet Extended Release 24 Hr 100 mg PO QAM Held celecoxib [Celebrex] 100 mg capsule 100 mg PO QAM Hold Instructions: Resume on 02/02/23. Hold until follow up with PCP due to concern for ulcer. Discontinued omeprazole 20 mg capsule,delayed release(DR/EC) 20 mg PO QAM Discharge Orders: Discharge Order (Routine); Ordered 01/03/23 Ordered By: Emeka Parekh Referrals: Jennifer Conner FNP [Nurse Practitioner] - (Please call [facility] on Thursday at [phone] to schedule a follow up appointment with Jennifer Conner and to set up an appointment to get a 21 day event monitor. Thank you.) Gerardo Ramirez MD [Primary Care Provider] - 2 weeks (Keep current appt. Will need event monitor at this appt. Please call [phone] for any questions or concerns. Thank you.) Discharge Diet: Advance as tolerated and Usual diet Discharge Activity: Resume usual activity and Increase activity as tolerated Patient Instructions: Omeprazole (By mouth) (Prilosec, Prilosec OTC, Omeclamox-Adiel, First..., Heart Palpitations (DC), Holter Monitor (GEN) Plan of Treatment: 1. Take medications as prescribed. 2. Hold Celebrex until follow up with PCP. 3. Follow up with PCP. Discharge Attestations Time Spent in Discharge Care*: greater than 30 min Quality Metrics Clinical Quality Measures [ No reported AMI, CVA or VTE this stay] Coding Level of Care Code Acute Code for Chg Fwd Diagnoses Palpitations R00.2 Altered mental status R41.82 Hyperlipidemia E78.5 GERD (gastroesophageal reflux disease) K21.9
[2023-01-03 10:51] VITALS: BP 128/90; PULSE 72; RESP 13; TEMP 36.5
== END 2023-01-03 10:52 | disposition home or self-care (01) ==
LOC: ER 06:30 → CSU 07:48
PROVIDERS: Emergency Medicine; Admitting Provider Internal Medicine; Emergency Provider Family Medicine; PCP Family Medicine; Visit Provider Internal Medicine
DX: R00.2 Palpitations (principal); K21.9 Gastro-esophageal reflux disease without esophagitis; E78.5 Hyperlipidemia, unspecified; I10 Essential (primary) hypertension; Z79.82 Long term (current) use of aspirin; R41.82 Altered mental status, unspecified
CPT/HCPCS: 36415; 36416; 70450; 71045; 80048; 80053; 81003; 82140; 82962; 83735; 84100; 84443; 84484; 85025; 85610; 93005; 93306; 96372; 96374; 96375; 96376; 99285; G0378; J1650; J2405; J2765; J3490

== ENCOUNTER → 2024-03-07 13:49 | Outpatient (BNVA) | payer MEDICARE, SELFPAY | PROVIDERS: PCP Family Medicine; Visit Provider Podiatrist Foot & Ankle Surgery | DX: L60.8 Other nail disorders (principal); L60.3 Nail dystrophy; L60.0 Ingrowing nail | CPT/HCPCS: 11750; 99203 ==

== ENCOUNTER → 2024-03-24 11:15 | Outpatient (BNVA) | payer MEDICARE, SELFPAY | PROVIDERS: PCP Family Medicine; Visit Provider Podiatrist Foot & Ankle Surgery | DX: L60.8 Other nail disorders (principal); Z98.890 Other specified postprocedural states | CPT/HCPCS: 99213 ==

== ENCOUNTER → 2024-11-03 14:51 | Outpatient (BNVA) | payer MEDICARE, SELFPAY | PROVIDERS: PCP Family Medicine; Visit Provider Family Medicine | DX: R07.9 Chest pain, unspecified (principal); R60.9 Edema, unspecified; I10 Essential (primary) hypertension; F41.9 Anxiety disorder, unspecified; R00.2 Palpitations | CPT/HCPCS: 80053; 83880; 84443; 85025 ==

== ENCOUNTER 2024-12-16 13:01 | Outpatient (RCR) | payer MEDICARE, SELFPAY | END 2024-12-24 23:55 | disposition home or self-care (01) | LOC: SPT 13:01 | PROVIDERS: Visit Provider Student in an Organized Health Care Education/Training Program | DX: Z47.1 Aftercare following joint replacement surgery (principal); Z96.652 Presence of left artificial knee joint | CPT/HCPCS: 97110; 97161 ==

== ENCOUNTER 2024-12-25 05:00 | Outpatient (RCR) | payer MEDICARE, SELFPAY | END 2025-01-23 23:59 | disposition home or self-care (01) | LOC: SPT 05:00 | PROVIDERS: Visit Provider Student in an Organized Health Care Education/Training Program | DX: Z47.1 Aftercare following joint replacement surgery (principal); Z96.652 Presence of left artificial knee joint | CPT/HCPCS: 97110 ==

== ENCOUNTER 2025-01-18 07:22 | Outpatient (CLI) | payer MEDICARE, SELFPAY ==
[2025-01-18 07:38] VITALS: BMI 27.9
--- NOTE | 2025-01-18 08:16 | ECG_ITS ---
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 Interpretive Statements LEXISCAN SESTAMIBI STRESS TEST Procedure: At the baseline, the blood pressure was 153/83 mmHg with a heart rate of 66 bpm. The electrocardiogram showed normal sinus rhythm, normal axis with normal ST and T's. The Lexiscan was infused over a period of 20 seconds. A total of 0.4 mg of Lexiscan was infused. The stress phase was continued for a total of 5 minutes. Heart rate was at the end of stress phase was 89 bpm and a blood pressure of 169/93 mmHg. The EKG at the peak infusion revealed normal sinus rhythm with no significant ST-T wave changes. Sestamibi was injected 20 seconds after the Lexiscan infusion. Blood pressure at the end of recovery phase was 165/97 mmHg with a heart rate of 89 bpm. Conclusion: 1. Normal EKG response to Lexiscan infusion 2. No Lexiscan induced chest pain or cardiac arrhythmia. 3. Normal blood pressure and heart rate response. 4. Sestamibi/sestamibi perfusion scan pending; see separate report. Electronically Signed On 02-04-2025 13:34:14 CDT by Niels Reeves M.D. [email or web address]
--- NOTE | 2025-01-18 08:17 | NMCV_ITS ---
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 Images obtained in supine and prone position. SPECT RESULTS Technical Quality: Good Raw Data Analysis: Normal Image Corrections: No attenuation or motion correction applied Summed Stress Score: 3 Summed Rest Score: 1 Summed Difference Score: 3 PERFUSION FINDINGS SPECT images demonstrate homogeneous tracer distribution throughout the myocardium. FUNCTIONAL RESULTS (calculated via Gated SPECT) Stress Image LV EF (%): 74 Stress EDV (mL):77 TID: 1.02 Stress ESV (mL):20 FUNCTIONAL FINDINGS: There is normal left ventricular systolic function. IMPRESSIONS 1. Normal myocardial perfusion imaging with no evidence of ischemia 2. LV systolic function is normal Niels Reeves MD (Electronically Signed) Final Date: 21 January 2025 12:07 S
[2025-01-18] MEDS: regadenoson 0.4 Mg/5 ml Syringe IVP (08:46)
[2025-01-18 09:01] VITALS: BP 165/97; PULSE 90
== END 2025-01-18 07:23 | disposition home or self-care (01) ==
LOC: CDL 07:24
PROVIDERS: PCP Family Medicine; Visit Provider Family Medicine
DX: R07.9 Chest pain, unspecified (principal)
CPT/HCPCS: 36415; 78452; 93017; 96374; A9500; J2785

== ENCOUNTER 2025-01-24 06:30 | Outpatient (RCR) | payer MEDICARE, SELFPAY | END 2025-02-10 10:06 | disposition home or self-care (01) | LOC: SPT 06:30 | PROVIDERS: PCP Family Medicine; Visit Provider Student in an Organized Health Care Education/Training Program | DX: Z47.1 Aftercare following joint replacement surgery (principal); Z96.652 Presence of left artificial knee joint | CPT/HCPCS: 97110 ==